=== PATIENT | male | born 1965 | race Two or more races ===

== ENCOUNTER 2018-06-08 07:46 | Day surgery (SDC) | payer OTHER ==
[2018-06-08] MEDS: NS 1,000 ML IV (08:49)
[2018-06-08] MEDS ORDERED: PROPOFOL 200 MG/20 ML VIAL As Ordered (09:36)
[2018-06-08] MEDS ORDERED: LIDOCAINE 2% INJ 100 MG/5 ML SDV (FOR ANES.) As Ordered (09:36)
[2018-06-08] MEDS ORDERED: ePHEDrine SULFATE 25 MG/5 ML(5MG/ML) SYRINGE As Ordered (10:08)
== END 2018-06-08 10:45 | disposition home or self-care (01) ==
LOC: M OPP 07:46
DX: K64.8 Other hemorrhoids (principal); D12.0 Benign neoplasm of cecum; D12.3 Benign neoplasm of transverse colon; K62.1 Rectal polyp; G43.909 Migraine, unspecified, not intractable, without status migrainosus; I10 Essential (primary) hypertension; G47.30 Sleep apnea, unspecified; Z79.899 Other long term (current) drug therapy; Z86.718 Personal history of other venous thrombosis and embolism; Z86.711 Personal history of pulmonary embolism; Z90.49 Acquired absence of other specified parts of digestive tract; Z98.1 Arthrodesis status
CPT/HCPCS: 45380

== ENCOUNTER → 2018-06-18 | Outpatient (REF) | payer OTHER ==
[2018-06-18 14:11] LABS: BASO % 0.5 % (0.0-1.0); EOS # 0.3 10^3/uL (0.0-0.50); HEMATOCRIT 50.8 % (42.0-52.0); HEMOGLOBIN 16.4 g/dl (13.5-17.5); IMMATURE GRANULOCYTE % 0.2 % (0-3.0); LYMPH # 1.3 10^3/uL (1.5-4.5); LYMPH % 23.6 % (24.0-44.0); MEAN CORPUSCULAR HEMOGLOBIN 29.8 pg (27.0-33.0); MEAN CORPUSCULAR HGB CONC 32.3 g/dl (32.0-36.5); MEAN CORPUSCULAR VOLUME 92.4 fl (80.0-96.0); MONO # 0.9 10^3/uL (0.0-0.8); MONO % 15.6 % (0.0-5.0); NEUTROPHILS % 54.1 % (36.0-66.0); PLATELET COUNT, AUTOMATED 158 10^3/uL (150-450); RED CELL DISTRIBUTION WIDTH 12.7 % (11.5-14.5); WHITE BLOOD COUNT 5.6 10^3/uL (4.0-10.0)
[2018-06-18 14:31] LABS: ALBUMIN 4.4 GM/DL (3.2-5.2); ALBUMIN/GLOBULIN RATIO 1.47 (1.00-1.93); ALKALINE PHOSPHATASE 66 U/L (45-117); ALT/SGPT 41 U/L (12-78); ANION GAP 6 MEQ/L (8-16); AST/SGOT 30 U/L (7-37); BILIRUBIN,TOTAL 0.7 MG/DL (0.2-1.0); BLOOD UREA NITROGEN 24 MG/DL (7-18); CALCIUM LEVEL 9.5 MG/DL (8.5-10.1); CARBON DIOXIDE LEVEL 33 MEQ/L (21-32); CHLORIDE LEVEL 103 MEQ/L (98-107); GLOMERULAR FILTRATION RATE > 60.0 (>56); GLUCOSE, FASTING 60 MG/DL (70-100); POTASSIUM SERUM 3.8 MEQ/L (3.5-5.1); RHEUMATOID FACTOR QUANT < 10.0 IU/ML (<15.0); SODIUM LEVEL 142 MEQ/L (136-145); TOTAL PROTEIN 7.4 GM/DL (6.4-8.2)
[2018-06-18 15:14] LABS: ERYTHROCYTE SEDIMENTATION RATE 1 mm/hr (0-20)
[2018-06-19 14:13] LABS: ANTI DOUBLE STRAND-DNA AB <1 IU/mL (0-9); ANTINUCLEAR ANTIBODIES DIRECT Positive (Negative); RNP ANTIBODIES 0.3 AI (0.0-0.9); SJOGREN'S ANTI SS-A <0.2 AI (0.0-0.9); SJOGREN'S ANTI SS-B <0.2 AI (0.0-0.9); SMITH ANTIBODIES <0.2 AI (0.0-0.9)
== END ==
LOC: M LABNEURO 08:55
DX: R51 Headache (principal)

== ENCOUNTER → 2022-10-21 | Outpatient (CLI) | payer OTHER ==
[~2022-10-21] MED LIST: ASPI81TA26 PO; CELE1CAP4 PO; FEXO-117 PO; FIOR1CAP PO; LISI5TAB11 PO; MINO50CA3 PO; SILD100T PO
== END ==
LOC: M LABSMTC 07:52
PROVIDERS: ATTEND Anesthesiology
DX: Z01.812 Encounter for preprocedural laboratory examination (principal); Z20.822 Contact with and (suspected) exposure to COVID-19

== ENCOUNTER 2022-10-26 09:47 | Day surgery (SDC) | payer OTHER ==
[~2022-10-26] VITALS: Ht 177.8 cm; Wt 75.7 kg
[~2022-10-26 09:47] MED LIST changes: +ACETAMINOPHEN 1000MG 100ML IV BAG As Ordered ONE; +KETOROLAC 60MG 2ML VIAL As Ordered ONE; +LIDOCAINE 2% 100MG/5ML SDV (FOR ANES.) As Ordered ONE; +MIDAZOLAM INJ 2MG/2ML VIAL As Ordered ONE; +ONDANSETRON 4MG 2ML VIAL As Ordered ONE; +fentaNYL 100 MCG/2 ML INJECTION As Ordered ONE; +propofoL 200 MG/20 ML VIAL As Ordered ONE
[2022-10-26] MEDS ORDERED: LR 1,000 ML IV SCH (11:10)
[2022-10-26] MEDS ORDERED: BUPIVACAINE HCL 0.5% 30ML VIAL As Ordered ONE (11:12)
[2022-10-26] MEDS ORDERED: LIDOCAINE 1% MDV 20ML VIAL As Ordered ONE (11:12)
[2022-10-26] MEDS ORDERED: CLINDAMYCIN 600 MG in IV 1 EA IV ONE (11:25)
[2022-10-26] MEDS ORDERED: MIDAZOLAM INJ 2MG/2ML VIAL As Ordered ONE (11:36)
[2022-10-26] MEDS ORDERED: PHENYLephrine 500MCG 5ML (100MCG/ML) SYRINGE As Ordered ONE (12:50)
[2022-10-26 13:10] VITALS: BP 121/89
== END 2022-10-26 13:30 | disposition home or self-care (01) ==
LOC: M SDC 09:47
PROVIDERS: ATTEND Podiatrist Foot & Ankle Surgery
DX: M20.12 Hallux valgus (acquired), left foot (principal); I10 Essential (primary) hypertension; K21.9 Gastro-esophageal reflux disease without esophagitis; Z86.718 Personal history of other venous thrombosis and embolism; G43.109 Migraine with aura, not intractable, without status migrainosus; Z86.711 Personal history of pulmonary embolism; G47.30 Sleep apnea, unspecified; Z79.899 Other long term (current) drug therapy; Z79.82 Long term (current) use of aspirin
CPT/HCPCS: 28296; 88300; C1713; J0131; J1100; J1885; J2250; J2370; J2405; J3010; S0020; S0077

== ENCOUNTER 2023-05-14 04:40 | Observation (INO) | payer OTHER ==
[~2023-05-14] VITALS: Ht 177.8 cm; Wt 75.0 kg
[~2023-05-14 04:40] MED LIST changes: -ACETAMINOPHEN 1000MG 100ML IV BAG As Ordered ONE; -KETOROLAC 60MG 2ML VIAL As Ordered ONE; -LIDOCAINE 2% 100MG/5ML SDV (FOR ANES.) As Ordered ONE; -MIDAZOLAM INJ 2MG/2ML VIAL As Ordered ONE; -ONDANSETRON 4MG 2ML VIAL As Ordered ONE; -fentaNYL 100 MCG/2 ML INJECTION As Ordered ONE; -propofoL 200 MG/20 ML VIAL As Ordered ONE
[2023-05-14] MEDS ORDERED: ONDANSETRON 4MG 2ML VIAL IV ONE (05:00)
[2023-05-14] MEDS ORDERED: KETOROLAC 30 MG/ML 1ML VIAL IV ONE ×2 (05:00→11:00)
[2023-05-14] MEDS ORDERED: NS 1,000 ML IV ONE ×2 (05:00→06:25)
[2023-05-14] MEDS ORDERED: MORPHINE 2 MG/ML 1ML VIAL As Ordered ONE (05:17)
[2023-05-14] MEDS ORDERED: MORPHINE 4 MG/ML 1ML VIAL IV ONE (05:20)
[2023-05-14 05:57] LABS: BASO % 0.2 % (0.0-1.0); EOS # 0.1 10^3/uL (0.0-0.5); EOS % 1.3 % (0.0-3.0); HEMOGLOBIN 15.9 g/dl (13.5-17.5); LYMPH # 0.8 10^3/uL (1.5-5.0); LYMPH % 9.7 % (24.0-44.0); MEAN CORPUSCULAR HEMOGLOBIN 29.7 pg (27.0-33.0); MEAN CORPUSCULAR HGB CONC 32.4 g/dl (32.0-36.5); MEAN CORPUSCULAR VOLUME 91.6 fl (80.0-96.0); MONO # 0.8 10^3/uL (0.0-0.8); NEUTROPHILS # 6.8 10^3/uL (1.5-8.5); NEUTROPHILS % 79.2 % (36.0-66.0); PLATELET COUNT, AUTOMATED 145 10^3/uL (150-450); RED BLOOD COUNT 5.35 10^6/uL (4.30-6.10); WHITE BLOOD COUNT 8.6 10^3/uL (4.0-10.0)
[2023-05-14 06:11] LABS: ALKALINE PHOSPHATASE 74 U/L (46-116); ALT/SGPT 36 U/L (7.0-40); AST/SGOT 29 U/L (<34); BILIRUBIN,TOTAL 0.6 MG/DL (0.3-1.2); BLOOD UREA NITROGEN 24 MG/DL (9-23); CALCIUM LEVEL 8.9 MG/DL (8.5-10.1); CARBON DIOXIDE LEVEL 26 MMOL/L (20-31); CHLORIDE LEVEL 106 MMOL/L (98-107); CREATININE FOR GFR 1.13 MG/DL (0.70-1.30); GLOMERULAR FILTRATION RATE > 60.0 (>56); GLUCOSE, FASTING 120 MG/DL (60-100); MAGNESIUM LEVEL 1.9 MG/DL (1.8-2.4); POTASSIUM SERUM 3.7 MMOL/L (3.5-5.1); SODIUM LEVEL 141 MMOL/L (136-145); TOTAL PROTEIN 6.8 G/DL (5.7-8.2)
[2023-05-14] MEDS ORDERED: HYDROMORPHONE HCL 0.5 MG/ 0.5 ML SYRINGE IV ONE (06:25)
[2023-05-14] MEDS ORDERED: CELE1CAP8 PO (06:35)
[2023-05-14] MEDS ORDERED: HOME MED LIST COMPLETE! XX SCH (06:35)
[2023-05-14] MEDS ORDERED: MIDAZOLAM INJ 2MG/2ML VIAL As Ordered ONE (07:34)
[2023-05-14] MEDS ORDERED: LIDOCAINE 2% 100MG/5ML SDV (FOR ANES.) As Ordered ONE (07:34)
[2023-05-14] MEDS ORDERED: fentaNYL 100 MCG/2 ML INJECTION As Ordered ONE (07:34)
[2023-05-14] MEDS ORDERED: propofoL 200 MG/20 ML VIAL As Ordered ONE (07:34)
[2023-05-14] MEDS ORDERED: MOM 30ML SUSPENSION UDC PO PRN (07:35)
[2023-05-14] MEDS ORDERED: MAALOX 30 ML SUSP *UDC PO PRN (07:35)
[2023-05-14] MEDS ORDERED: NS 1,000 ML IV SCH (07:35)
[2023-05-14] MEDS ORDERED: ACETAMINOPHEN TAB 650MG DOSE (2X325MG) PO PRN (07:35)
[2023-05-14 08:03] LABS: RSV AMPLIFICATION NEGATIVE (NEGATIVE)
[2023-05-14] MEDS ORDERED: CIPROFLOXACIN/D5W 400 MG/200 ML BAG As Ordered ONE (08:17)
[2023-05-14 08:37] LABS: PROCALCITONIN <0.04 ng/ml
[2023-05-14] MEDS ORDERED: fentaNYL 100 MCG/2 ML INJECTION IV PRN (08:45)
[2023-05-14] MEDS ORDERED: ONDANSETRON 4MG 2ML VIAL IV PRN (08:45)
[2023-05-14] MEDS ORDERED: HYDROMORPHONE HCL 0.5 MG/ 0.5 ML SYRINGE IV PRN (08:45)
[2023-05-14] MEDS ORDERED: LR 1,000 ML IV SCH (08:45)
[2023-05-14] MEDS ORDERED: METOCLOPRAMIDE INJ 10MG/2ML VIAL IV PRN (08:45)
[2023-05-14] MEDS ORDERED: oxyCODONE 5MG TAB PO PRN (08:45)
[2023-05-14] MEDS ORDERED: DOCUSATE SODIUM 100MG CAPSULE PO SCH (09:00)
[2023-05-14] MEDS ORDERED: CIPROFLOXACIN 400 MG in IV 1 EA IV SCH (09:00)
[2023-05-14] MEDS ORDERED: TAMSULOSIN 0.4 MG CAP PO SCH (09:00)
[2023-05-14] MEDS ORDERED: BACT800T5 PO (09:05)
[2023-05-14] MEDS ORDERED: FLOM0.4C39 PO (09:05)
[2023-05-14 09:55] VITALS: BP 127/83; TEMP 96.7; O2SAT 98
== END 2023-05-14 10:01 | disposition home or self-care (01) ==
LOC: M ED 04:40 → M ED INP 07:35 → UNDOADMOB 07:35 → UNDODISOB 10:01
PROVIDERS: ADMIT Internal Medicine; ATTEND Internal Medicine
DX: N13.2 Hydronephrosis with renal and ureteral calculous obstruction (principal); I10 Essential (primary) hypertension; Z88.0 Allergy status to penicillin; Z91.013 Allergy to seafood; Z79.899 Other long term (current) drug therapy; Z84.1 Family history of disorders of kidney and ureter
CPT/HCPCS: 52332; 52351; 74176; 76000; 80053; 81001; 83605; 83735; 84145; 85025; 87631; 96374; 96375; 99284; C1769; C2617; J0744; J1170; J1885; J2250; J2405; J3010

== ENCOUNTER 2023-06-22 06:05 | Day surgery (SDC) | payer OTHER ==
[~2023-06-22] VITALS: Ht 177.8 cm; Wt 85.2 kg
[~2023-06-22 06:05] MED LIST changes: +BACT800T5 PO; +CELE1CAP99 PO; +FLOM0.4C39 PO
[2023-06-22] MEDS ORDERED: LR 1,000 ML IV SCH ×2 (06:40→09:10)
[2023-06-22] MEDS ORDERED: ISOVUE-300 61% 100ML VIAL As Ordered ONE (06:40)
[2023-06-22] MEDS ORDERED: KETOROLAC 60MG 2ML VIAL As Ordered ONE (07:18)
[2023-06-22] MEDS ORDERED: CIPROFLOXACIN/D5W 400 MG/200 ML BAG As Ordered ONE (07:31)
[2023-06-22] MEDS ORDERED: PHENYLephrine 500MCG 5ML (100MCG/ML) SYRINGE As Ordered ONE (07:59)
[2023-06-22] MEDS ORDERED: CIPROFLOXACIN 400 MG in IV 1 EA IV ONE (08:00)
[2023-06-22] MEDS ORDERED: fentaNYL 100 MCG/2 ML INJECTION As Ordered ONE (08:14)
[2023-06-22] MEDS ORDERED: LIDOCAINE 2% 100MG/5ML SDV (FOR ANES.) As Ordered ONE (08:14)
[2023-06-22] MEDS ORDERED: MIDAZOLAM INJ 2MG/2ML VIAL As Ordered ONE (08:14)
[2023-06-22] MEDS ORDERED: ONDANSETRON 4MG 2ML VIAL As Ordered ONE (08:14)
[2023-06-22] MEDS ORDERED: propofoL 200 MG/20 ML VIAL As Ordered ONE (08:14)
[2023-06-22] MEDS ORDERED: ACETAMINOPHEN 1000MG 100ML IV BAG As Ordered ONE (08:42)
[2023-06-22] MEDS ORDERED: HYDROMORPHONE HCL 0.5 MG/ 0.5 ML SYRINGE IV PRN (09:10)
[2023-06-22] MEDS ORDERED: ONDANSETRON 4MG 2ML VIAL IV PRN (09:10)
[2023-06-22] MEDS ORDERED: fentaNYL 100 MCG/2 ML INJECTION IV PRN (09:10)
[2023-06-22] MEDS ORDERED: oxyCODONE 5MG TAB PO PRN (09:10)
[2023-06-22] MEDS ORDERED: CIPR-249 PO (09:12)
[2023-06-22] MEDS ORDERED: PYRI1TAB5 PO (09:12)
[2023-06-22] MEDS ORDERED: XANA1TAB2 PO (09:12)
[2023-06-22] MEDS ORDERED: OXYB5TAB11 PO (09:12)
[2023-06-22 10:52] VITALS: BP 113/82; TEMP 96.5; O2SAT 99
== END 2023-06-22 10:53 | disposition home or self-care (01) ==
LOC: M SDC 06:05
PROVIDERS: ATTEND Urology
DX: N20.1 Calculus of ureter (principal); I10 Essential (primary) hypertension; K21.9 Gastro-esophageal reflux disease without esophagitis; G47.30 Sleep apnea, unspecified; Z79.899 Other long term (current) drug therapy; Z79.82 Long term (current) use of aspirin; Z86.718 Personal history of other venous thrombosis and embolism; Z88.0 Allergy status to penicillin
CPT/HCPCS: 52356; 76000; 82365; C1769; C2617; J0131; J0744; J1100; J1885; J2250; J2371; J2405; J3010; Q9967

== ENCOUNTER → 2024-06-25 | Outpatient (CLI) | payer OTHER ==
[~2024-06-25] MED LIST changes: +CIPR-249 PO; +OXYB5TAB14 PO; +PROHANCE 279.3MG/ML 15ML VIAL ONE; +PYRI1TAB5 PO; +XANA1TAB2 PO
== END ==
LOC: M PLAIMG 13:56
PROVIDERS: ATTEND Student in an Organized Health Care Education/Training Program
DX: G93.0 Cerebral cysts (principal); E23.6 Other disorders of pituitary gland
CPT/HCPCS: 70553; A9576